=== PATIENT | male | born 1970 | race Caucasian/White ===

== ENCOUNTER 2023-11-20 20:07 | Observation (INO) | payer BC ==
[~2023-11-20] VITALS: Ht 175.3 cm; Wt 77.2 kg
[2023-11-20] VITALS (16 sets, daily range): BP systolic 97–153; BP diastolic 64–114
--- NOTE | 2023-11-20 20:08 | NUR ---
PT TO ER BED 12 FOR TRIAGE AT THIS TIME WITH AN EVEN AND STEADY GAIT IN NO APPARENT DISTRESS. EKG COMPLETED, IV INITIATED, LABS DRAWN, AND VSS. CALL LIGHT WITHIN REACH AND PT AWAITING EDP EXAM.
[2023-11-20] MEDS ORDERED: TESTOSTER (20:18)
[2023-11-20 20:37] LABS: BASO% 0.4 % (0-3); EOS% 0.8 % (0-8); HEMATOCRIT 52.3 % (39.0-50.0); HEMOGLOBIN 17.7 g/dl (14.0-18.0); IMMATURE GRANULOCYTES 0.3 % (0.0-5.0); MEAN CELL VOLUME 91.9 fL CALC (80.0-100.0); MEAN CORPUSCULAR HGB 31.1 pG CALC (26.0-32.0); MEAN CORPUSCULAR HGB CONC 33.8 g/dL CAL (32.0-36.0); MONO% 11.7 % (2-13); NEUT# 5.53 thou/uL (1.82-7.42); NEUT% 50.8 % (42-76); RED BLOOD COUNT 5.69 mill/uL (4.70-6.10); RED CELL DISTRI WIDTH 13.9 % (11.5-15.5)
--- NOTE | 2023-11-20 20:53 | NUR ---
Reassessment of patient completed. No distress noted.
[2023-11-20 21:18] LABS: ALBUMIN 4.7 g/dL (3.2-5.0); ALKALINE PHOSPHATASE 58 u/l (38-126); ANION GAP 16 (6-22 (CALC)); BILIRUBIN, TOTAL 1.6 mg/dL (0.2-1.3); BUN 21 mg/dL (9-20); BUN/CREATININE RATIO 19 (12-20 (CALC)); CARBON DIOXIDE 23 mmol/l (22-30); CHLORIDE 104 mmol/l (95-108); CPK 127 u/l (55-170); CREATININE 1.1 mg/dL (0.7-1.3); GFR FOR AFR.AMER. > 60 ML/MIN (>=60 (CALC)); GFR OTHER RACES > 60 ML/MIN (>=60 (CALC)); LIPASE 100 u/l (23-300); POTASSIUM 3.9 mmol/l (3.5-5.1); SGOT/AST 33 u/l (17-59); SODIUM 139 mmol/l (137-146); TOTAL PROTEIN 7.6 g/dL (6.3-8.2)
--- NOTE | 2023-11-20 21:40 | NUR ---
PATIENT PROVIDED URINAL AT THIS TIME FOR SPECIMEN, AWAITING ALL RESULTS AND SPECIMEN AT THIS TIME, PATIENT VOICES APPRECIATION OF CARE AT THIS TIME.
--- NOTE | 2023-11-20 21:57 | NUR ---
TRANSITION OF CARE REPORT TO NIRANJAN SORIANO
--- NOTE | 2023-11-20 21:59 | NUR ---
REPORT RECEIVED FROM Liana COLON RN
--- NOTE | 2023-11-20 22:10 | NUR ---
ASSUMED PATIENT CARE AT THIS TIME, PATIENT RESTING IN SEMI-FOWLERS POSITION WITH NO FURTHER QUESTIONS OR CONCERNS AT THIS TIME, PATIENT VOICES MINIMAL RELIEF OF CHEST/BACK DISCOMFORT, UPDATED ON CONTINUOUS PLAN OF CARE, AWAITING ALL FURTHER RESULTS AT THIS TIME, VSS. WILL CONTINUE TO MONITOR.
--- NOTE | 2023-11-20 23:10 | NUR ---
AT BEDSIDE FOR DISCUSSION OF RESULTS AND POSSIBLE ADMISSION.
--- NOTE | 2023-11-21 | NUR ---
REPORT CALLED TO CHRISTIE BOSTON ON [facility] AT THIS TIME, PATIENT READIED FOR TRANSPORT TO [facility] AT THIS TIME. VSS, PATIENT VOICES UNDERSTANDING WITH NO FURTHER QUESTIONS OR CONCERNS AT THIS TIME.
--- NOTE | 2023-11-21 00:10 | NUR ---
PATIENT TRANSPORTED TO [facility] AT THIS TIME, AMB WITH STEADY GAIT TO W/C AND UP TO FLOOR. NURSE AT BEDSIDE, AWARE OF PATIENT STATUS, PATIENT DENIES PAIN AT THIS TIME.
[2023-11-21 00:52] VITALS: BP 115/77
[2023-11-21 04:05] VITALS: BP 120/69
[2023-11-21 04:56] LABS: BASO% 0.5 % (0-3); EOS% 1.1 % (0-8); HEMATOCRIT 48.7 % (39.0-50.0); HEMOGLOBIN 16.4 g/dl (14.0-18.0); IMMATURE GRANULOCYTES 0.3 % (0.0-5.0); LYMPH% 37.6 % (15-41); MEAN CORPUSCULAR HGB 31.7 pG CALC (26.0-32.0); MEAN CORPUSCULAR HGB CONC 33.7 g/dL CAL (32.0-36.0); MONO% 10.4 % (2-13); NEUT# 3.98 thou/uL (1.82-7.42); NEUT% 50.1 % (42-76); RED BLOOD COUNT 5.18 mill/uL (4.70-6.10); RED CELL DISTRI WIDTH 13.8 % (11.5-15.5)
[2023-11-21 04:58] LABS: ALBUMIN 4.4 g/dL (3.2-5.0); ALKALINE PHOSPHATASE 50 u/l (38-126); ANION GAP 13 (6-22 (CALC)); BUN 19 mg/dL (9-20); BUN/CREATININE RATIO 19 (12-20 (CALC)); CARBON DIOXIDE 25 mmol/l (22-30); CHLORIDE 104 mmol/l (95-108); GFR FOR AFR.AMER. > 60 ML/MIN (>=60 (CALC)); GFR OTHER RACES > 60 ML/MIN (>=60 (CALC)); POTASSIUM 4.5 mmol/l (3.5-5.1); SGOT/AST 30 u/l (17-59); SODIUM 138 mmol/l (137-146)
[2023-11-21 05:02] LABS: BILIRUBIN, TOTAL 2.3 mg/dL (0.2-1.3)
--- NOTE | 2023-11-21 05:24 | NUR ---
CRITICAL TROP 0.[address] TORRES. NEW ORDER FOR STAT EKG AND CARDIOLOGY CONSULT GIVE.
[2023-11-21 07:00] VITALS: BP 117/74
--- NOTE | 2023-11-21 07:00 | NUR ---
ROUNDED WITH TELEMED CARDIOLOGY. AWAITING ORDERS. PER CARDIOLOGY WANTING PT TRANSFERED OUT TO CARDIAC WORKUP. DR [employer] PILOT INFORMED.
--- NOTE | 2023-11-21 07:26 | NUR ---
PT A/O X3, RESPIRATIONS ARE EVEN AND UNLABORED, PT DENIES PAIN AT THIS TIME. BP 120/69, HR 67, O2 AT 97% ON RA, TEMP 97.2. CAMPUS MONITOR PLACING A SECOND IV NOW.
--- NOTE | 2023-11-21 07:45 | NUR ---
PT LEFT THE FLOOR VIA WHEELCHAIR TRANSPORT FOR CT SCAN.
--- NOTE | 2023-11-21 08:16 | NUR ---
NOTIFIED DR BARRAZA OF TROPS OF 0.151.
[2023-11-21 11:23] VITALS: BP 106/73
--- NOTE | 2023-11-21 12:36 | NUR ---
DR BARRAZA IS BEDSIDE DISCUSSING PLAN OF CARE WITH PT AT THIS TIME.
[2023-11-21] MEDS ORDERED: ASPIRIN 81 LOW81 MG PO (12:45)
[2023-11-21] MEDS ORDERED: ATORVASTATIN CA40 MG PO (12:46)
--- NOTE | 2023-11-21 13:19 | NUR ---
DISCHARGE INSTRUCTIONS REVIEWED WITH PT. IV DC'D, TELE BOX DC'D, PT LEFT THE FLOOR VIA WHEELCHAIR TRANSPORT WITH BELONGINGS IN HAND.
--- NOTE | 2023-11-22 11:51 | NUR ---
Discharge follow up call completed 11/22/23. Pt states he is doing well and having no issues since discharge. Pt said he contacted grocery team member but was unable to get appointment for 2 months. Pt is returning to [place] in 2 weeks Encouraged patient to contact his PCP in [place] for follow up appointment today and ask about a referral to [place] grocery team member. Pt was unsure he wanted to take medication prescribed without seeing a doctor. Enouraged patient to discuss medicaton with PCP to determine correct course of actoin No other questions or concerns verbalized by patient at this time.
== END 2023-11-21 13:20 | disposition home or self-care (01) | DRG 313 ==
LOC: ED 20:07 → ED-I 23:00 → ED 23:16 → MS2 23:17
PROVIDERS: Internal Medicine; ADMIT Student in an Organized Health Care Education/Training Program; ATTEND Student in an Organized Health Care Education/Training Program
DX: R07.9 Chest pain, unspecified (principal); R79.89 Other specified abnormal findings of blood chemistry; R00.0 Tachycardia, unspecified; I10 Essential (primary) hypertension; E29.1 Testicular hypofunction; Z79.890 Hormone replacement therapy
CPT/HCPCS: G0378; J1650; Q9967